=== PATIENT | female | born 1945 | race Caucasian/White ===

== ENCOUNTER 2017-04-17 15:54 | Emergency (ER) | payer BC ==
[~2017-04-17] VITALS: Ht 167.6 cm; Wt 65.0 kg
[~2017-04-17 15:54] MED LIST: ATOR20TA PO; ZOLP10TA3 PO
[2017-04-17 15:57] VITALS: BP 141/73; PULSE 73; RESP 16; TEMP 98.5; O2SAT 97
[2017-04-17] MEDS ORDERED: ATOR20TA15 PO (16:08)
--- NOTE | 2017-04-17 16:26 | PD ---
HPI Chief Complaint: Dizziness Time Seen by Provider: 16:18 Travel History International Travel<30 days: No Contact w/Intl Traveler<30days: No Traveled to known affect area: No History of Present Illness HPI WHILE SHE WAS DRIVING DEVELOPED SUDDEN ONSET EPISODE OF DIZZINESS, LIKE ROOM SPINNING, VERY SEVERE, SHE STOPPED DRIVING AND CALLED 911. EMS FOUND HER HYPERTENSIVE WITH NORMAL BLOOD SUGAR. WORSENED BY SUDDEN HEAD MOVEMENTS PCP CAN'T RECALL PMHX:HTN AND HYPERCHOL ONLY FOLLOWS UP WITH [facility] [employer] [facility] Past Medical History High Cholesterol: Yes Diminished Hearing: No Tetanus Vaccination: Unknown Influenza Vaccination: No ?: Not Social History Alcohol Use: No Tobacco Use: No Substance Use: No Allergies-Medications (Allergen,Severity, Reaction): Uncoded Allergies: bactine (Allergy, Intermediate, hives, 06/03/15) Reported Meds & Prescriptions Reported Meds & Active Scripts Active Reported Atorvastatin (Atorvastatin Calcium) 20 Mg Tab 20 Mg PO HS Review of Systems Except as stated in HPI: all other systems reviewed are Neg General / Constitutional: No: Fever Eyes: No: Visual changes HENT: Positive: Vertigo Cardiovascular: No: Chest Pain or Discomfort Respiratory: No: Shortness of Breath Gastrointestinal: No: Abdominal Pain Genitourinary: No: Dysuria Musculoskeletal: No: Pain Skin: No Rash Neurologic: No: Weakness Psychiatric: No: Depression Endocrine: No: Polydipsia Hematologic/Lymphatic: No: Easy Bruising Physical Exam Narrative GENERAL: SKIN: Warm and dry. HEAD: Atraumatic. Normocephalic. EYES: Pupils equal and round. No scleral icterus. No injection or drainage. LATERAL NYSTAGMUS FATIGUABLE, NO ROTARY/VERTICAL COMPONENT. ENT: No nasal bleeding or discharge. Mucous membranes pink and moist.BILATERAL TM HAS SMALL EFFUSIONS NECK: Trachea midline. No JVD. CARDIOVASCULAR: Regular rate and rhythm. RESPIRATORY: No accessory muscle use. Clear to auscultation. Breath sounds equal bilaterally. GASTROINTESTINAL: Abdomen soft, non-tender, nondistended. Hepatic and splenic margins not palpable. MUSCULOSKELETAL: Extremities without clubbing, cyanosis, or edema. No obvious deformities. NEUROLOGICAL: Awake and alert. No obvious cranial nerve deficits. Motor grossly within normal limits. Five out of 5 muscle strength in the arms and legs. Normal speech. PSYCHIATRIC: Appropriate mood and affect; insight and judgment normal. Data Data Last Documented VS Vital Signs Date Time Temp Pulse Resp B/P (MAP) Pulse Ox O2 Delivery O2 Flow Rate FiO2 04/17/17 17:32 Room Air 04/17/17 17:32 78 16 169/98 (121) 98 04/17/17 15:57 98.5 Orders Orders Electrocardiogram (04/17/17 16:18) Complete Blood Count With Diff (04/17/17 16:18) Comprehensive Metabolic Panel (04/17/17 16:18) Troponin I (04/17/17 16:18) Prothrombin Time / Inr (Pt) (04/17/17 16:18) Act Partial Throm Time (Ptt) (04/17/17 16:18) Lipase (04/17/17 16:18) Thyroid Stimulating Hormone (04/17/17 16:18) Chest, Single Ap (04/17/17 16:18) Ct Brain W/O Iv Contrast(Rout) (04/17/17 16:18) Iv Access Insert/Monitor (04/17/17 16:18) Ecg Monitoring (04/17/17 16:18) Oximetry (04/17/17 16:18) Meclizine (Antivert) (04/17/17 17:45) Labs Laboratory Tests Test 04/17/17 16:51 White Blood Count 7.8 TH/MM3 Red Blood Count 4.12 MIL/MM3 Hemoglobin 13.1 GM/DL Hematocrit 40.3 % Mean Corpuscular Volume 97.8 FL Mean Corpuscular Hemoglobin 31.8 PG Mean Corpuscular Hemoglobin Concent 32.5 % Red Cell Distribution Width 16.2 % Platelet Count 319 TH/MM3 Mean Platelet Volume 9.1 FL Neutrophils (%) (Auto) 70.5 % Lymphocytes (%) (Auto) 21.4 % Monocytes (%) (Auto) 6.2 % Eosinophils (%) (Auto) 1.4 % Basophils (%) (Auto) 0.5 % Neutrophils # (Auto) 5.5 TH/MM3 Lymphocytes # (Auto) 1.7 TH/MM3 Monocytes # (Auto) 0.5 TH/MM3 Eosinophils # (Auto) 0.1 TH/MM3 Basophils # (Auto) 0.0 TH/MM3 CBC Comment DIFF FINAL Differential Comment Prothrombin Time 10.4 SEC Prothromb Time International Ratio 1.0 RATIO Activated Partial Thromboplast Time 27.6 SEC Blood Urea Nitrogen 10 MG/DL Creatinine 0.78 MG/DL Random Glucose 102 MG/DL Total Protein 7.3 GM/DL Albumin 3.7 GM/DL Calcium Level 8.4 MG/DL Alkaline Phosphatase 55 U/L Aspartate Amino Transf (AST/SGOT) 27 U/L Alanine Aminotransferase (ALT/SGPT) 29 U/L Total Bilirubin 0.6 MG/DL Sodium Level 138 MEQ/L Potassium Level 3.3 MEQ/L Chloride Level 103 MEQ/L Carbon Dioxide Level 27.1 MEQ/L Anion Gap 8 MEQ/L Estimat Glomerular Filtration Rate 73 ML/MIN Troponin I LESS THAN 0.02 NG/ML Lipase 94 U/L Thyroid Stimulating Hormone 3rd Gen 1.650 uIU/ML MDM Medical Decision Making Medical Screen Exam Complete: Yes Emergency Medical Condition: Yes Medical Record Reviewed: Yes Differential Diagnosis VERTIGO V CENTRAL VERTIGO V ICH Narrative Course CT NEG FOR ICH/MASS, NO ANEMIA, NO ELECTROLYTE ABNL, CXR NEG FOR PNA/PLEURAL EFFUSION/PTX, .... Diagnosis Primary Impression: Vertigo, peripheral Qualified Codes: H81.399 - Other peripheral vertigo, unspecified ear Referrals: Corwin Ray MD FOR FURTHER EVALUATION AND CARE OF YOUR VERTIGO. Patient Instructions: General Instructions, Vertigo (ED) Scripts Meclizine (Meclizine) 25 Mg Tab 25 MG PO TID Y for VERTIGO, #15 TAB 0 Refills Prov: Jarvis Kang MD 04/17/17 Disposition: DISCHARGE HOME Condition: Stable Jarvis Kang MD Apr 17, 2017 16:26
--- NOTE | 2017-04-17 16:37 | RADRPT ---
EXAM DATE/TIME: 04/17/2017 16:21 [facility] COMPARISON: No previous studies available for comparison. INDICATIONS : Light-headed and dizziness- No chest complaints. High blood pressure. MEDICAL HISTORY : None. SURGICAL HISTORY : None. ENCOUNTER: Initial ACUITY: 1 day PAIN SCORE: 0/10 LOCATION: Bilateral chest FINDINGS: No infiltrate, effusion or pneumothorax. Heart size within normal limits. Moderate severity S-shaped thoracolumbar scoliosis. CONCLUSION: No evidence of acute cardiopulmonary disease. Mert Reich MD on April 17, 2017 at 16:34 Board Certified Radiologist. This report was verified electronically.
[2017-04-17 16:59] VITALS: O2SAT 100
[2017-04-17 17:06] LABS: AUTOMATED NEUTROPHIL # 5.5 TH/MM3 (1.8-7.7); BASOPHIL % 0.5 % (0.0-2.0); EOSINOPHIL # 0.1 TH/MM3 (0-0.4); EOSINOPHIL % 1.4 % (0.0-4.0); HEMATOCRIT 40.3 % (35.0-46.0); HEMOGLOBIN 13.1 GM/DL (11.6-15.3); LYMPH % 21.4 % (9.0-44.0); LYMPHOCYTE # 1.7 TH/MM3 (1.0-4.8); MEAN CELL VOLUME 97.8 FL (80.0-100.0); MEAN CORPUSCULAR HEMOGLOBIN 31.8 PG (27.0-34.0); MEAN CORPUSCULAR HGB CONC 32.5 % (32.0-36.0); MEAN PLATELET VOLUME 9.1 FL (7.0-11.0); MONO % 6.2 % (0.0-8.0); MONOCYTE # 0.5 TH/MM3 (0-0.9); NEUT % 70.5 % (16.0-70.0); PLATELET COUNT 319 TH/MM3 (150-450); RED BLOOD COUNT 4.12 MIL/MM3 (4.00-5.30); RED CELL DISTRIBUTION WIDTH 16.2 % (11.6-17.2); WHITE BLOOD COUNT 7.8 TH/MM3 (4.0-11.0)
--- NOTE | 2017-04-17 17:11 | RADRPT ---
EXAM DATE/TIME: 04/17/2017 16:55 [facility] COMPARISON: No previous studies available for comparison. INDICATIONS : Patient became dizzy while driving today. RADIATION DOSE: 58.61 CTDIvol (mGy) MEDICAL HISTORY : Hypercholesterolemia. SURGICAL HISTORY : None. ENCOUNTER: Initial ACUITY: 1 day PAIN SCALE: 0/10 LOCATION: cranial TECHNIQUE: Multiple contiguous axial images were obtained of the head. Using automated exposure control and adj ustment of the mA and/or kV according to patient size, radiation dose was kept as low as reasonably a chievable to obtain optimal diagnostic quality images. DICOM format image data is available electro nically for review and comparison. FINDINGS: CEREBRUM: The ventricles are normal for age. No evidence of midline shift, mass lesion, hemorrhage or acute in farction. No extra-axial fluid collections are seen. POSTERIOR FOSSA: The cerebellum and brainstem are intact. The 4th ventricle is midline. The cerebellopontine angle i s unremarkable. EXTRACRANIAL: The visualized portion of the orbits is intact. SKULL: The calvaria is intact. No evidence of skull fracture. CONCLUSION: Negative noncontrast head CT. Mert Reich MD on April 17, 2017 at 17:08 Board Certified Radiologist. This report was verified electronically.
[2017-04-17 17:14] LABS: CHLORIDE 103 MEQ/L (98-107); SODIUM (NA) 138 MEQ/L (136-145)
[2017-04-17 17:18] LABS: ALBUMIN 3.7 GM/DL (3.4-5.0); BICARBONATE 27.1 MEQ/L (21.0-32.0); BLOOD UREA NITROGEN 10 MG/DL (7-18); CALCIUM 8.4 MG/DL (8.5-10.1); GLUCOSE,RANDOM 102 MG/DL (74-106); LIPASE 94 U/L (73-393)
[2017-04-17 17:20] LABS: PROTHROMBIN TIME - PATIENT 10.4 SEC (9.8-11.6)
[2017-04-17 17:21] LABS: ALT (GPT) 29 U/L (10-53); AST (GOT) 27 U/L (15-37); CREATININE 0.78 MG/DL (0.50-1.00); GLOMERULAR FILTRATION RATE 73 ML/MIN (>89)
[2017-04-17 17:23] LABS: TOTAL BILIRUBIN ADULT 0.6 MG/DL (0.2-1.0); TOTAL PROTEIN 7.3 GM/DL (6.4-8.2)
[2017-04-17 17:24] LABS: ALKALINE PHOSPHATASE 55 U/L (45-117)
[2017-04-17 17:26] LABS: TROPONIN I LESS THAN 0.02 NG/ML (0.02-0.05)
[2017-04-17 17:32] VITALS: BP 169/98; PULSE 78; RESP 16; O2SAT 98
[2017-04-17] MEDS ORDERED: MECL-62 PO (17:39)
[2017-04-17] MEDS ORDERED: MECLIZINE HCL 25 MG TAB PO ONE (17:45)
--- NOTE | 2017-04-18 17:14 | EKG ---
Date Performed: 04/17/2017 Time Performed: 16:30:45 PTAGE: 71 years EKG: Sinus rhythm POSSIBLE RIGHT VENTRICULAR CONDUCTION DELAY POSSIBLE ANTERIOR MYOCARDIAL INFARCTION BORDERLINE ECG NO PREVIOUS TRACING DOCTOR: Hemant Gerardo Interpretating Date/Time 04/18/2017 17:13:44
== END 2017-04-17 18:01 | disposition home or self-care (01) ==
LOC: PHED 15:54
DX: H81.49 Vertigo of central origin, unspecified ear (principal); R94.31 Abnormal electrocardiogram [ECG] [EKG]; Z79.899 Other long term (current) drug therapy
CPT/HCPCS: 70450; 71045; 80053; 83690; 84443; 84484; 85025; 85610; 85730; 93005; 99285